=== PATIENT | male | born 1955 | race African-American/Black ===

== ENCOUNTER 2025-04-14 10:07 | Outpatient (AMB) | payer OTHER, SELFPAY ==
--- NOTE | 2025-04-14 10:09 | A.OFFPC_ITS ---
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 Unintentional Weight Loss: The patient reports a chronic inability to gain weight, an issue that began approximately 12-13 years ago. This started after he was diagnosed with a stomach infection by the [facility], for which he received medication. He experiences intermittent flare-ups of what he believes are the same symptoms, characterized by a sour stomach and an inability to eat, during which he loses weight (e.g., 10 pounds) and is unable to regain it. He has never seen a algology teacher or cargo service supervisor for this issue. Hypertension: The patient has a history of hypertension, for which he takes amlodipine and losartan daily. Overactive Bladder: The patient has a history of overactive bladder, managed with oxybutynin prescribed by a urologist. He reports the medication is effective. Chronic Back Pain: The patient reports chronic back issues stemming from a pinched nerve four years ago. He received physical therapy from the [facility] but still experiences pain and limitations in movement. He takes naproxen as needed for the pain. Preventative Care: The patient underwent a colonoscopy five to six years ago, which was normal with no polyps found, and a repeat was recommended in 10 years. He has a significant smoking history, having quit about 12 months ago after smoking since high school, and has never had a low-dose CT scan of his lungs for screening. Surgical History: - History of surgery on the right side, possibly for a hernia. Medications: - Amlodipine for hypertension - Losartan for hypertension - Oxybutynin for overactive bladder - Naproxen as needed for back pain Social History: - Tobacco Use: Former smoker, quit appro ximately 12 months ago. - Smoking History: Smoked cigarettes sin ce high school. - Service: Served in the [employer] f or three years. - Sleep: Reports typically sleeping for only four hours per night, stating his body is used to it. Family History: - Father: History of prostate cancer, wh ich was reportedly resolved. - Mother: from recurrent breast can cer. Diagnostic Results: - Colonoscopy (5-6 years ago): Results w ere good with no polyps found; follow-up recommended in 10 years. Past Medical History - Hypertension - Overactive bladder - Chronic back pain secondary to a pinch ed nerve four years ago - History of a stomach infection approxi mately 12-13 years ago Health Maintenance - Colonoscopy: Performed 5-6 years ago w ith normal results; repeat recommended in 10 years. - Lung Cancer Screening: Patient is a fo rmer heavy smoker who has never had a screening CT scan of the lungs. [facility] Medical History (Updated 04/14/25 @ 10:43 by Keyon Sol MD) Chronic lower back pain Overactive bladder Weight loss History of nicotine use Hypertension Surgical History (Updated 04/14/25 @ 10:22 by Omid Montana MA) History of hernia surgery Family History (Updated 04/14/25 @ 10:23 by Omid [place] MA) Father Prostate cancer Mother Breast cancer Social History Housing: Apartment Alcohol intake: never Patient Tobacco Use Status: Never used Tobacco e-Cigarette/Vaping Use: Never Used Second Hand Smoke Exposure: No Substance Use Type: Marijuana service: Yes Current occupational status: employed 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 1. Little interest or pleasure in doing things: not at all 2. Feeling down, depressed, or hopeless: not at all 3. Trouble falling or staying asleep, or sleeping too much: not at all 4. Feeling tired or having little energy: not at all 5. Poor appetite or overeating: not at all 6. Feeling bad about yourself - or that you are a failure or have let yourself or your family down: not at all 7. Trouble concentrating on things, such as reading the newspaper or watching television: not at all 8. Moving or speaking so slowly that other people could have noticed. Or the opposite - being so fidgety or restless that you have been moving around a lot more than usual: not at all 9. Thoughts that you would be better off or of hurting yourself in some way: not at all Total score: 0 Depression Screening Interpretation: Negative Depression Screening Done: Yes 22731 - PHQ-9 Billing: Yes Source: Developed by Drs. Nilay Garcia, Bee Wellington, Zeb Frederick and colleagues, with an educational martín from [employer]. AUDIT C Alcohol Use Questionnaire (AUDIT-C) 1. How often do you have a drink containing alcohol?: Never 3. How often do you have six or more drinks on one occasion?: Never Total Score: 0 EDITH-7 AMB Questionnaire EDITH-7 Date EDITH - 7 assessed: 04/14/25 Feeling nervous, anxious, or on edge: 0 = Not at all Not being able to stop or control worryin = Not at all Worrying too much about different things: 0 = Not at all Trouble relaxin = Not at all Being so restless that it is hard to sit still: 0 = Not at all Becoming easily annoyed or irritable: 0 = Not at all Feeling afraid as if something awful might happen: 0 = Not at all Total EDITH-7 score (0-4 normal; 5-9 mild; 10-14 moderate; 15-21 severe): 0 Source: Developed by Drs. Nilay Garcia, Zeb Sarkar and colleagues, with an educational martín from [employer]. EDITH-7 Assessment Billing EDITH-7 Assessment Tool: EDITH-7 Assessment 90246 Review of Systems Narrative Review of Systems - Constitutional: Reports chronic inability to gain weight and easy weight loss. - Gastrointestinal: Reports intermittent episodes of a sour stomach and inability to eat. - Genitourinary: Reports history of overactive bladder, which is controlled with medication. - Musculoskeletal: Reports chronic back pain with some limitations in movement. - Neurological/Psychiatric: Reports sleeping only about 4 hours per night but is accustomed to it. 10-point ROS reviewed and negative except as noted in HPI Physical exam (Primary Care) Depression Screening Interpretation: Negative Narrative Physical Exam General: Well-appearing, in no acute distress. Vital signs: Within normal limits. HEENT: Normocephalic, atraumatic. PERRLA, EOMI. Conjunctiva clear, sclera anicteric. Oropharynx clear, mucous membranes moist. TMs intact bilaterally. Neck: Supple, no lymphadenopathy, no thyromegaly, no JVD or carotid bruits. Cardiovascular: RRR, normal S1/S2, no murmurs, rubs, or gallops. Peripheral pulses 2+ and symmetric. No edema. Respiratory: Lungs clear to auscultation bilaterally, no wheezes, rales, or rhonchi. Normal effort. Abdomen: Soft, non-tender, non-distended. Normoactive bowel sounds. No hepatosplenomegaly, no masses. MSK: Full range of motion, no joint swelling or deformity. Normal gait. Skin: Warm, dry, intact. No rashes, lesions, or pallor. Neuro: Alert and oriented x3. Cranial nerves II-XII intact. Strength 5/5 throughout. Sensation intact. Reflexes 2+ symmetric. Normal coordination and gait. Psych: Appropriate mood and affect. Normal judgment and insight. Coding Level of Care Code New Pt Level 4 (02471) Diagnoses Weight loss R63.4 Overactive bladder N32.81 Chronic lower back pain M54.50; G89.29 History of nicotine use Z87.891 Additional Codes EDITH-7 Assessment Billing - EDITH-7 Assessment Tool: EDITH-7 Assessment 51005 ([id number]) PHQ-9 - 05851 - PHQ-9 Billing: Yes ([id number]) Assessment & Plan Assessment & Plan (1) Weight loss: Code(s): R63.4 - Abnormal weight loss Category: Medical (2) Overactive bladder: Code(s): N32.81 - Overactive bladder Category: Medical (3) Chronic lower back pain: Code(s): M54.50 - Low back pain, unspecified; G89.29 - Other chronic pain Category: Medical (4) History of nicotine use: Code(s): Z87.891 - Personal history of nicotine dependence Category: Medical Plan Consent The plan of care, including comprehensive blood work, a referral for a low dose CT scan of the lungs, and a referral to a registered dietitian, was discussed with the patient. The patient provided verbal consent to proceed with the proposed plan. Patient was informed and verbally consented to the use of an ambient scribe for clinic note documentation during this visit. Plan 1. Unintentional Weight Loss - Will order comprehensive blood work, including a CBC, CMP to check liver and kidney function, electrolytes, calcium, magnesium, and thyroid function. - Further labs will include B12, folate, vitamin D, hemoglobin A1c, and a lipid panel. - Screening labs for hepatitis B, C, and HIV will be checked. - A urinalysis will also be performed. - Will place a referral for the patient to see a registered dietitian for assistance with weight gain. - A follow-up appointment is scheduled in two weeks to discuss the results and determine the next steps. 2. Tobacco Use Disorder In Remission - Will place a referral for a low-dose CT scan of the lungs for lung cancer screening due to the patient's long smoking history. 3. Hypertension - The patient confirms having a sufficient supply of his blood pressure medications; no refills are needed at this time. 4. Overactive Bladder - Patient reports medication is effective; continue current management. Discussion Notes I discussed my initial plan with the patient to investigate his chronic inability to gain weight. I explained that we would start with a comprehensive set of blood tests to get an overall picture of his health, checking his blood counts, liver, kidney, thyroid function, electrolytes, vitamin levels, cholesterol, and screening for common infections like hepatitis and HIV. I also explained the rationale for a referral for a low-dose CT scan of his lungs, which is to screen for any abnormalities given his long-term smoking history, even though he has quit. I informed him that I would be referring him to a registered dietitian who can provide specialized advice on diet and calorie intake to help with weight gain. We will review all the results in a follow-up visit in two weeks to decide on the next steps, which could include considering medications to stimulate his appetite. The patient understood the plan and agreed to proceed. Patient Instructions - Please go to the lab to have your blood drawn today. - A referral has been placed for a low-dose CT scan of your lungs because of your past smoking. - You will be contacted by a nurse navigator to schedule an appointment with a registered dietitian to help with weight gain. - Continue taking your current medications for blood pressure and overactive bladder as prescribed. - Schedule a follow-up appointment in two weeks to discuss your lab results and the next steps in your care. Medical Decision Making The patient is a 69-year-old male presenting with a chronic history of unintentional weight loss and inability to gain weight, which has been present for over a decade. The history suggests intermittent flare-ups of GI symptoms since a stomach infection years ago, which exacerbates the weight loss. My initial approach is to perform a broad diagnostic workup to rule out underlying systemic disease, including malignancy, chronic infection, endocrine disorders, malabsorption, and renal or hepatic dysfunction. Comprehensive labs including a CBC, CMP, thyroid panel, HbA1c, vitamin levels (B12, D, Folate), and infectious disease screening (Hepatitis B/C, HIV) are indicated. Given his extensive smoking history, a low-dose CT scan for lung cancer screening is warranted as a preventative measure, which could also incidentally reveal other etiologies for constitutional symptoms. A referral to a registered dietitian is a torres component of the plan to provide practical strategies for increasing caloric intake, regardless of the underlying cause. We will defer GI consultation until after re viewing these initial results in two weeks, at which point we can make a more informed decision regarding further steps, including potential appetite- stimulating medications. Total time spent caring for the patient today was 30 minutes. This includes time spent before the visit reviewing the chart, time spent documenting, and time spent reviewing laboratory results, diagnostic imaging, medications, performing a medically necessary evaluation, counseling on diagnoses, care coordination, ordering appropriate tests, ordering appropriate medications, review of tests performed by other providers, reporting test results with the patient, communication with other healthcare providers. Orders: Orders Hemoglobin A1c Today Z13.9 - Encounter for screening, unspecified Hepatitis B Surface Antibody Today Z13.9 - Encounter for screening, unspecified HIV Ab/Ag Today Z13.9 - Encounter for screening, unspecified Lipid Panel Today Z13.9 - Encounter for screening, unspecified Magnesium Today Z13.9 - Encounter for screening, unspecified UA CC w/rflx Micro + Cult Today Z13.9 - Encounter for screening, unspecified Vitamin B12 and Folate Today Z13.9 - Encounter for screening, unspecified TSH reflex Free T4 Today Z13.9 - Encounter for screening, unspecified Complete Blood Count Auto Diff Today Z13.9 - Encounter for screening, unspecified Comprehensive Met. Panel Today Z13.9 - Encounter for screening, unspecified Hepatitis B Surface Antigen Today Z13.9 - Encounter for screening, unspecified Hepatitis C Antibody Today Z13.9 - Encounter for screening, unspecified Vitamin D 1,25 dihydroxy Today Z13.9 - Encounter for screening, unspecified Referrals Pulmonology Referral Z12.2 - Encounter for screening for malignant neoplasm of respiratory organs, Z87.891 - Personal history of nicotine dependence Nutrition/Dietitian Referral R63.4 - Abnormal weight loss
[2025-04-14 10:19] VITALS: BP 147/71; PULSE 60; RESP 18; TEMP 36.8; O2SAT 95; BMI 22.1
== END 2025-04-14 10:37 | disposition home or self-care (01) ==
LOC: HO.HMCFMS 10:07
PROVIDERS: Visit Provider Student in an Organized Health Care Education/Training Program
DX: R63.4 Abnormal weight loss (principal); N32.81 Overactive bladder; M54.50 Low back pain, unspecified; G89.29 Other chronic pain; Z87.891 Personal history of nicotine dependence

== ENCOUNTER → 2025-04-14 10:07 | Outpatient (BNVA) | payer OTHER, SELFPAY | PROVIDERS: Visit Provider Student in an Organized Health Care Education/Training Program | DX: R63.4 Abnormal weight loss (principal); Z68.22 Body mass index [BMI] 22.0-22.9, adult; N32.81 Overactive bladder; M54.50 Low back pain, unspecified; G89.29 Other chronic pain; I10 Essential (primary) hypertension; Z79.899 Other long term (current) drug therapy; Z13.31 Encounter for screening for depression; Z13.39 Encounter for screening examination for other mental health and behavioral disorders | CPT/HCPCS: 96127 ==

== ENCOUNTER 2025-04-15 15:04 | Outpatient (REF) | payer OTHER, SELFPAY ==
[2025-04-15 18:10] LABS: MANUAL DIFF FLAG NO
[2025-04-15 18:40] LABS: Hematocrit 39.9 % (42.0-52.0); Hemoglobin 13.0 g/dl (14.0-18.0); Imm Gran Abs Auto 0.01 X10*3/uL (0.00-0.03); Imm Gran Pct Auto 0.2 % (0.0-0.4); Lymphocytes Absolute Auto 1.8 X10*3/uL (1.2-4.9); Mean Corpuscular HGB Conc 32.6 g/dl (31.0-36.0); Mean Corpuscular Hemoglobin 27.3 pg (27.0-33.0); Mean Corpuscular Volume 83.8 fL (80.0-98.0); NRBC Abs Auto 0.000 X10*3/uL (0.0-0.012); NRBC Pct Auto 0.0 /100WBC (0.0-0.2); Platelet Count 230 X10*3/uL (160-400); Red Blood Count 4.76 X10*6/uL (4.60-5.80); White Blood Count 5.9 X10*3/uL (4.8-10.8)
[2025-04-15 18:49] LABS: Alanine Aminotransferase 28 U/L (0-40); Albumin Level 4.5 g/dL (3.5-5.0); Alkaline Phosphatase 65 U/L (39-117); Anion Gap 11 (12-20); Aspartate Amino Transferase 45 U/L (5-37); Blood Urea Nitrogen 16 mg/dL (9-16); Calcium 9.3 mg/dL (8.4-10.2); Carbon Dioxide 27 mmol/L (22-29); Chloride 109 mmol/L (96-108); Cholesterol 167 mg/dL (<200); Estimated Glomerular Filt Rate > 60; HDL Cholesterol 65 mg/dL (>40); Magnesium 2.1 mg/dL (1.6-2.6); Potassium 4.0 mmol/L (3.3-5.1); Sodium 143 mmol/L (135-145); Total Protein 7.2 g/dL (6.5-8.0); Triglycerides 74 mg/dL (<150)
[2025-04-15 18:52] LABS: Appearance Urine Clear; Glucose Urine UA Negative (Negative); PH 5.5 (5.0-9.0); Specific Gravity - Urine 1.015 (1.005-1.025); UMIC TRIGGER UACC YES
[2025-04-15 19:04] LABS: Folate 13.8 ng/mL (> or = 4.0); Vitamin B12 356 pg/mL (200-900)
[2025-04-16 08:24] LABS: HBS Num1 1.39 mIU/mL (0-7.99); HBsAGNum1 0.40 S/CO (0.00-0.99); HIV Num 1 0.08 S/CO (0.00-0.99); Hepatitis B Surface Antigen Negative (Negative); ~HepC Num1 0.12 S/CO (0.00-0.79); ~Hepatitis B Surface Antibody NONREACTIVE (Nonreactive); ~Hepatitis C Antibody Nonreactive (Nonreactive)
[2025-04-22 04:53] LABS: VITAMIN D (1,25 OH) D3 64 pg/mL; Vit D (1,25-Dihydroxy) Total 64 pg/mL (18-72); Vitamin D (1,25 OH) D2 <8 pg/mL
== END 2025-04-15 15:05 | disposition home or self-care (01) ==
LOC: HO.HKASLDS 15:04
PROVIDERS: PCP Student in an Organized Health Care Education/Training Program; Visit Provider Student in an Organized Health Care Education/Training Program
DX: Z11.4 Encounter for screening for human immunodeficiency virus [HIV] (principal); Z13.29 Encounter for screening for other suspected endocrine disorder; Z13.1 Encounter for screening for diabetes mellitus; Z13.6 Encounter for screening for cardiovascular disorders; Z13.89 Encounter for screening for other disorder
CPT/HCPCS: 36415; 80053; 80061; 81001; 81003; 82607; 82652; 82746; 83036; 83735; 84443; 85025; 86706; 86803; 87340; 87389

== ENCOUNTER 2025-05-14 14:16 | Outpatient (AMB) | payer OTHER, SELFPAY ==
--- NOTE | 2025-05-14 14:21 | A.OFFPC_ITS ---
Vital Signs 05/14/25 14:25 Height 5 ft 7.5 in Weight 142 lb BMI 21.9 BP 132/73 Blood Pressure Location Rt brachial Position Sitting Respiration 18 Pulse 60 Pulse Source Pulse Oximeter Temp 98.2 F Temp Source Oral Pulse Oximetry (%) 97 Oxygen Delivery Method Room Air Intake Visit Reasons: 2 wk - lab review roxie from 04/29/25 Intake Note: Patient present for lab review. Hair Assistant Required: No Accompanied by: Self / Same As Patient Allergies No Known Allergies Allergy (Verified 05/14/25 14:24) Medication List - Last Reconciled 05/14/25 by Keyon Sol MD amlodipine 10 mg PO DAILY ascorbic acid (vitamin C) 500 mg PO DAILY ferrous sulfate 325 mg PO DAILY losartan 100 mg PO DAILY Tobacco use date assessed: 04/14/25 Fall risk assessment: No Falls in past year Last assessed Fall Risk: 05/14/25 Dental Screening Dental Screen Date: 04/14/25 HPI HPI Comments History of Present Illness Details History of Present Illness The patient is a 69 year old male presenting for a review of laboratory results and evaluation of new-onset left thumb pain. Anemia: Recent laboratory results revealed low hemoglobin and hematocrit, indicative of anemia, which is associated with symptoms of fatigue and tired legs. Left Thumb Pain: The patient reports the onset of left thumb pain and swelling approximately one month ago without a specific injury. He experiences limited ability to bend the thumb, a popping sensation, and pain at the base, which he rates as 9 out of 10 when it occurs. He has not taken any medication for this issue. Hypertension: The patient has a history of hypertension, with a previous reading of 147/71 mmHg. Elevated Liver Enzymes: Recent lab work showed a mildly elevated AST of 45. The patient denies alcohol consumption. 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 - Substance Use: He denies alcohol use. Diagnostic Results: - Blood Pressure: 132/73 mmHg. - Labs: Recent bloodwork showed low hemo globin and hematocrit, a slightly elevated AST at 45, and negative results for hepatitis B, hepatitis C, and HIV. White blood cells, red blood cells, sodium, potassium, kidney function, other liver functions, cholesterol levels, vitamin B12, vitamin D, folate, and thyroid function were all within normal limits. Past Medical History - Hypertension Health Maintenance - The patient's recent lab results were reviewed, including a complete blood count, comprehensive metabolic panel, lipid panel, vitamin B12, vitamin D, folate, thyroid function, and infectious disease screening (hepatitis B, C, and HIV). [facility] Medical History (Updated 05/14/25 @ 14:42 by Keyon Sol MD) Iron deficiency anemia Pain of left thumb Chronic lower back pain Overactive bladder Weight loss History of nicotine use Hypertension Surgical History History of hernia surgery Family History Father Prostate cancer Mother Breast cancer Social History (Updated 04/14/25 @ 10:24 by Omid [place] CMA) Housing: Apartment Alcohol intake: never Patient Tobacco Use Status: Never used Tobacco e-Cigarette/Vaping Use: Never Used Second Hand Smoke Exposure: No Substance Use Type: Marijuana service: Yes Current occupational status: employed 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 Current occupational exposures/hazards: Yes Cognitive needs: No Hearing needs: No Vision needs: No Questionnaire Thrive Questionnaire Date Thrive assessed: 04/14/25 I am a: Patient What is your living situation today?: I have a steady place to live Within the past 12 months, did the food you bought not last and you didn't have the money to get more?: Never true Within the past 12 months, did you worry whether your food would run out before you got money to buy more?: Never true Do you have trouble paying for medicines?: Yes Do you have trouble getting transportation to medical appointments?: No Do you have trouble paying your heating and electricity bill?: No Do you have trouble taking care of your child, family member or friend?: No Do you have trouble with day-to-day activities such as bathing, preparing meals, shopping, managing finances, etc.?: No Are you currently unemployed and looking for a job?: No Are you interested in more education?: No Please select the resources that you would like help with: Utilities Currently or been in a relationship where the following occur: No concerns reported THRIVE Score: 0 EDITH-7 AMB Questionnaire EDITH-7 Date EDITH - 7 assessed: 11/04/25 Source: Developed by Drs. Nilay Garcia, Bee Wellington, Zeb Frederick and colleagues, with an educational martín from [employer]. Review of Systems Narrative Review of Systems - Constitutional: Reports fatigue and tired legs. - Musculoskeletal: Reports left thumb pain, swelling, and a popping sensation for the past month, with limited range of motion. 10-point ROS reviewed and negative except as noted in HPI Physical exam (Primary Care) Vital Signs: Last Vital Signs Temp 98.2 F 05/14/25 14:25 Pulse 60 05/14/25 14:25 Resp 18 05/14/25 14:25 BP 132/73 05/14/25 14: Pulse Ox 97 05/14/25 14:25 Oxygen Delivery Method Room Air 05/14/25 14:25 BMI result Body Mass Index 21.9 Tobacco/Smoking Status: Tobacco use Status Tobacco use date assessed 04/14/25 05/14/25 14:22 Patient Tobacco Use Status Never used Tobacco 05/14/25 14:22 e-Cigarette/Vaping Use Never Used 05/14/25 14:22 Thrive Assessment: Date of Thrive Assessment Date Thrive assessed 04/14/25 05/14/25 14:22 Currently or been in a relationship where the following occur: No concerns reported Narrative Physical Exam General: Well-appearing, in no acute distress. Vital signs: Blood pressure today is 132/73, improved from 147/71 previously. HEENT: Normocephalic, atraumatic. PERRLA, EOMI. Conjunctiva clear, sclera anicteric. Oropharynx clear, mucous membranes moist. TMs intact bilaterally. Neck: Supple, no lymphadenopathy, no thyromegaly, no JVD or carotid bruits. Cardiovascular: RRR, normal S1/S2, no murmurs, rubs, or gallops. Peripheral pulses 2+ and symmetric. No edema. Respiratory: Lungs clear to auscultation bilaterally, no wheezes, rales, or rhonchi. Normal effort. Abdomen: Soft, non-tender, non-distended. Normoactive bowel sounds. No hepatosplenomegaly, no masses. MSK: Full range of motion, except for the left thumb which is swollen and painful, with pain rated at 9/10 at times. No other joint swelling or deformity. Normal gait. Skin: Warm, dry, intact. No rashes, lesions, or pallor. Neuro: Alert and oriented x3. Cranial nerves II-XII intact. Strength 5/5 throughout. Sensation intact. Reflexes 2+ symmetric. Normal coordination and gait. Psych: Appropriate mood and affect. Normal judgment and insight. Coding Level of Care Code Est Pt Level 3 (51250) Diagnoses Pain of left thumb M79.645 Iron deficiency anemia D50.9 Assessment & Plan Assessment & Plan (1) Pain of left thumb: Code(s): M79.645 - Pain in left finger(s) Category: Medical (2) Iron deficiency anemia: Code(s): D50.9 - Iron deficiency anemia, unspecified Category: Medical Plan Consent The treatment plan, including new medications and diagnostic imaging, was discussed with the patient. The rationale, administration instructions, and potential side effects of iron supplementation, such as constipation and dark stools, were reviewed. The patient provided verbal agreement to the proposed plan, including proceeding with a left thumb X-ray. Patient was informed and verbally consented to the use of an ambient scribe for clinic note documentation during this visit. Plan 1. Anemia - Prescribed ferrous sulfate and ascorbic acid (Vitamin C). - Instructed the patient to take vitamin C first, followed by the iron sup plement one hour before or two hours after a meal for improved absorption. - Counseled on potential side effects, including constipation and dark stools, and recommended increasing water and fiber intake or using MiraLAX if needed. - Plan to repeat labs in three to six months to monitor hemoglobin and hematocrit levels. 2. Left Thumb Pain - Ordered an X-ray of the left thumb and provided a script for the patient to complete the imaging. - Recommended the patient use his at-home ibuprofen 800 mg as needed for swelling. - Advised the purchase and use of a thumb splint to immobilize the joint and facilitate healing. 3. Elevated Ast - The mild elevation is not concerning at this time. - Plan to recheck liver function with repeat labs in three to six months. 4. Hypertension - Noted improvement in blood pressure reading to 132/73 mmHg. - Continue current management. Discussion Notes I reviewed the patient's lab results with him, highlighting the improved blood pressure reading and the new finding of anemia based on his low hemoglobin and hematocrit. I explained that the anemia is likely the cause of his fatigue and recommended starting iron supplementation with vitamin C to improve absorption. We discussed how to take the medication and the potential side effects, such as constipation and dark stools, along with management strategies. I reassured him that the slight elevation in his AST liver enzyme is not a major concern at this time and we will recheck it in the future. Regarding his new complaint of left thumb pain, I recommended an X-ray to investigate the cause. I also advised him to use a thumb splint and his existing ibuprofen to manage symptoms and allow the joint to heal. The patient understood the plan and agreed to proceed with the recommended tests and treatments. Patient Instructions - Two new prescriptions, iron (ferrous sulfate) and vitamin C (ascorbic acid), have been sent to your pharmacy. - Take the vitamin C pill first, and then take the iron pill. You should take the iron pill either one hour before you eat a meal or two hours after you eat. - The iron supplement can cause your stool to become dark and may cause constipation. To help with constipation, drink more water, eat more fiber, or use an [id number] medicine like MiraLAX. - Go to the imaging center to get an X-ray of your left thumb. A paper order for this has been provided to you. - Buy a splint for your thumb to keep it still and help it heal. - You can use the 800 mg ibuprofen you have at home to help with the swelling in your thumb. - You will need to have your blood work repeated in about three to six months. Medical Decision Making The patient presented for a review of labs, which revealed anemia with low hemoglobin and hematocrit, correlating with his symptoms of fatigue. With normal vitamin B12 and folate levels, iron deficiency is the leading consideration, warranting a trial of oral iron supplementation with vitamin C to enhance absorption. A minor, isolated elevation in AST is clinically insignificant at this time, especially given the patient's denial of alcohol use, and will be monitored. The patient's new complaint of left thumb pain for one month with swelling and limited motion, but without a history of trauma, requires investigation to rule out an occult fracture, degenerative joint disease, or tendinopathy. An X-ray of the left thumb is the appropriate initial diagnostic step. Pending imaging results, conservative management with splinting and NSAIDs (ibuprofen) is appropriate for symptom control and to promote healing. Total Time Statement 20 min Total time spent caring for the patient today includes pre-visit chart review, documentation, review of laboratory and diagnostic imaging results, medication reconciliation, medically necessary evaluation, counseling on diagnoses, care coordination, ordering appropriate tests and medications, review of tests performed by other providers, reporting test results to the patient, and communication with other healthcare providers. Orders: Orders XR hand LT 2V Today M79.645 - Pain in left finger(s) Medications: New ascorbic acid (vitamin C) 500 mg PO DAILY 90 tabs 0RF ferrous sulfate 325 mg PO DAILY 90 tabs 0RF
[2025-05-14 14:25] VITALS: BP 132/73; PULSE 60; RESP 18; TEMP 36.8; O2SAT 97; BMI 21.9
== END 2025-05-14 14:41 | disposition home or self-care (01) ==
LOC: HO.HMCFMS 14:17
PROVIDERS: PCP Student in an Organized Health Care Education/Training Program; Visit Provider Student in an Organized Health Care Education/Training Program
DX: M79.645 Pain in left finger(s) (principal); D50.9 Iron deficiency anemia, unspecified

== ENCOUNTER 2025-05-28 14:34 | Outpatient (AMB) | payer OTHER, SELFPAY ==
[2025-05-28 14:36] VITALS: BP 135/61; PULSE 55; TEMP 36.7; O2SAT 99; BMI 22.0
--- NOTE | 2025-05-28 14:36 | A.OFFPC_ITS ---
Vital Signs 05/28/25 14:36 Height 5 ft 7.5 in Weight 142 lb 8 oz BMI 22.0 BP 135/61 Blood Pressure Location Lt brachial Position Sitting Pulse 55 Pulse Source Pulse Oximeter Temp 98.1 F Temp Source Oral Pulse Oximetry (%) 99 Oxygen Delivery Method Room Air Intake Visit Reasons: 1 week follow up Intake Note: f/u thumb pain Accompanied by: Self / Same As Patient Allergies No Known Allergies Allergy (Verified 05/28/25 14:36) Tobacco use date assessed: 05/28/25 Fall risk assessment: No Falls in past year Last assessed Fall Risk: 05/28/25 Dental Screening Dental Screen Date: 05/28/25 Did you have a dental visit in the last 12 months?: Yes [facility] Medical History (Updated 05/28/25 @ 14:50 by Keyon Sol MD) Ear pain, left Iron deficiency anemia Pain of left thumb Chronic lower back pain Overactive bladder Weight loss History of nicotine use Hypertension Surgical History History of hernia surgery Family History Father Prostate cancer Mother Breast cancer Social History Housing: Apartment Alcohol intake: never Patient Tobacco Use Status: Former Tobacco user e-Cigarette/Vaping Use: Never Used Second Hand Smoke Exposure: No Substance Use Type: Marijuana service: Yes Current occupational status: employed 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 1. Little interest or pleasure in doing things: not at all 2. Feeling down, depressed, or hopeless: not at all 3. Trouble falling or staying asleep, or sleeping too much: not at all 4. Feeling tired or having little energy: not at all 5. Poor appetite or overeating: not at all 6. Feeling bad about yourself - or that you are a failure or have let yourself or your family down: not at all 7. Trouble concentrating on things, such as reading the newspaper or watching television: not at all 8. Moving or speaking so slowly that other people could have noticed. Or the opposite - being so fidgety or restless that you have been moving around a lot more than usual: not at all 9. Thoughts that you would be better off or of hurting yourself in some way: not at all Total score: 0 Depression Screening Interpretation: Negative Depression Screening Done: Yes 01196 - PHQ-9 Billing: Yes Source: Developed by Drs. Nilay Garcia, Bee Wellington, Zeb Frederick and colleagues, with an educational martín from [employer]. Thrive Questionnaire Date Thrive assessed: 05/28/25 I am a: Patient What is your living situation today?: I have a steady place to live Within the past 12 months, did the food you bought not last and you didn't have the money to get more?: Never true Within the past 12 months, did you worry whether your food would run out before you got money to buy more?: Never true Do you have trouble paying for medicines?: Yes Do you have trouble getting transportation to medical appointments?: No Do you have trouble paying your heating and electricity bill?: No Do you have trouble taking care of your child, family member or friend?: No Do you have trouble with day-to-day activities such as bathing, preparing meals, shopping, managing finances, etc.?: No Are you currently unemployed and looking for a job?: No Are you interested in more education?: No Currently or been in a relationship where the following occur: No concerns reported THRIVE Score: 0 EDITH-7 AMB Questionnaire EDITH-7 Date EDITH - 7 assessed: 05/28/25 Feeling nervous, anxious, or on edge: 0 = Not at all Not being able to stop or control worryin = Not at all Worrying too much about different things: 0 = Not at all Trouble relaxin = Not at all Being so restless that it is hard to sit still: 0 = Not at all Becoming easily annoyed or irritable: 0 = Not at all Feeling afraid as if something awful might happen: 0 = Not at all Total EDITH-7 score (0-4 normal; 5-9 mild; 10-14 moderate; 15-21 severe): 0 Source: Developed by Kevin Wagneret B[employer], Zeb Frederick and colleagues, with an educational martín from [employer]. Physical exam (Primary Care) Vital Signs: Last Vital Signs Temp 98.1 F 05/28/25 14:36 Pulse 55 05/28/25 14:36 BP 135/61 05/28/25 14:36 Pulse Ox 99 05/28/25 14:36 Oxygen Delivery Method Room Air 05/28/25 14:36 BMI result Body Mass Index 22.0 Tobacco/Smoking Status: Tobacco use Status Tobacco use date assessed 05/28/25 05/28/25 14:37 Patient Tobacco Use Status Former Tobacco user 05/28/25 14:43 e-Cigarette/Vaping Use Never Used 05/28/25 14:37 PHQ-9: PHQ-9 Score PHQ-9: Total score 0 05/29/25 07:18 Depression Screening Interpretation: Negative Thrive Assessment: Date of Thrive Assessment Date Thrive assessed 05/28/25 05/28/25 14:37 Currently or been in a relationship where the following occur: No concerns reported Office Procedures Flu Questionnaire Does the patient have a severe egg allergy?: No Does the patient have severe life threatening allergies?: No Does the patient have a fever or illness today?: No Has the patient ever had Guillain-Chromo Syndrome?: No Has the patient ever had any past reaction to a flu shot?: No Immunizations Fluarix [id number] (PF) 45 mcg (15 mcg x 3)/0.5 mL IM syringe Performing Provider: Keyon Sol MD Per[facility] Document[facility] (not given) by: Michelle Chicas CMA on 05/28/25 14:43 Reason Not Given: Patient Refused Coding Additional Codes PHQ-9 - 07804 - PHQ-9 Billing: Yes ([id number]) Assessment & Plan Assessment & Plan Orders: Orders Influenza [id number] Immunization 05/28/25 Z23 - Encounter for immunization Referrals Orthopedics Referral M79.645 - Pain in left finger(s) Ear/Nose/Throat Referral H92.02 - Otalgia, left ear
== END 2025-05-28 14:55 | disposition home or self-care (01) ==
LOC: HO.HMCFMS 14:35
PROVIDERS: PCP Student in an Organized Health Care Education/Training Program; Visit Provider Student in an Organized Health Care Education/Training Program
DX: Z23 Encounter for immunization (principal)

== ENCOUNTER → 2025-05-28 14:34 | Outpatient (BNVA) | payer OTHER, SELFPAY | PROVIDERS: PCP Student in an Organized Health Care Education/Training Program; Visit Provider Student in an Organized Health Care Education/Training Program | DX: Z13.31 Encounter for screening for depression (principal); Z13.39 Encounter for screening examination for other mental health and behavioral disorders | CPT/HCPCS: 90471; 96127 ==